=== PATIENT | female | born 1990 | race African-American/Black ===

== ENCOUNTER 2022-10-20 14:11 | Emergency (ER) | payer OTHER ==
[~2022-10-20] VITALS: Ht 175.3 cm; Wt 150.6 kg
[2022-10-20] MEDS ORDERED: MUCINEX DM ER1 EACH PO (16:27)
== END 2022-10-20 17:29 | disposition home or self-care (01) ==
LOC: ER 14:37
DX: J06.9 Acute upper respiratory infection, unspecified (principal); Z88.6 Allergy status to analgesic agent; Z88.8 Allergy status to other drugs, medicaments and biological substances
CPT/HCPCS: 71046; 99284